=== PATIENT | female | born 1990 ===

== ENCOUNTER 2025-01-25 08:46 | Inpatient (IN) | payer OTHER ==
[~2025-01-25] VITALS: Ht 170.2 cm; Wt 95.1 kg
[2025-01-25] MEDS ORDERED: Aluminum Hydroxide 320MG/5ML 473 ML PO PRN ×2 (09:40→15:15)
[2025-01-25] MEDS ORDERED: DiphenhydrAMINE HCl 50 MG/ML 1ML Vial IM PRN ×2 (09:40→15:15)
[2025-01-25] MEDS ORDERED: Ondansetron 4 MG SoluTab MM PRN ×2 (09:45→15:15)
[2025-01-25] MEDS ORDERED: LORazepam 2 MG/ML 1ML Injection IM PRN ×2 (09:45→15:15)
[2025-01-25] MEDS ORDERED: Polyethylene Glycol 3350 17 gm PO PRN ×2 (09:45→15:15)
[2025-01-25] MEDS ORDERED: Haloperidol Lactate Inj. 5 MG/ML Injection IM PRN ×2 (09:50→15:15)
[2025-01-25] MEDS ORDERED: FLU VACC TS2025-26(6MOS UP)/PF 45 MCG/0.5 ML SYRINGE IM ONE (09:50)
[2025-01-25] MEDS ORDERED: FLU VACC TS2025-26(6MOS UP)/PF 45 MCG/0.5 ML SYRINGE IM SCH (09:50)
[2025-01-25 15:17] VITALS: BP 123/92
[2025-01-25] MEDS ORDERED: DULO60 PO (16:00)
[2025-01-25 16:01] VITALS: BP 123/92
[2025-01-25] MEDS ORDERED: BUPR100 PO (17:29)
[2025-01-25] MEDS ORDERED: VITAMIN D31250 MC2 PO (17:30)
[2025-01-25] MEDS ORDERED: ALBU90OI INH (17:36)
[2025-01-25] MEDS ORDERED: LEVE500 PO (17:38)
[2025-01-25] MEDS ORDERED: PRAZ2 PO (17:39)
[2025-01-25] MEDS ORDERED: GABA400 PO (17:39)
[2025-01-25] MEDS ORDERED: MELO7.5 PO (17:39)
[2025-01-25] MEDS ORDERED: DOTTI1 EA19 TOP (17:40)
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
[2025-01-25] MEDS ORDERED: Albuterol HFA200 ACT/6.7 GM INH INH PRN (20:35)
[2025-01-25 20:52] VITALS: BP 112/76
[2025-01-26] MEDS ORDERED: PANT40 PO (02:56)
[2025-01-26] MEDS ORDERED: ESTRADIOL1 MG PO (02:59)
[2025-01-26] MEDS ORDERED: HYDPAM50 PO (03:03)
[2025-01-26] MEDS ORDERED: Robaxin750 MG PO (03:08)
--- NOTE | 2025-01-26 04:05 | NUR ---
patient is alert and oriented times 4. She has a very flat affect, but is appropriate when asked questions and during assessment. Patient denied current suicidal ideation, but says it is intermittant and fleeting at the time of assessment. Denies HI and AVTH. Medication reconciliation had to be redone as discharge medication list from [facility] was found in patients belongings box. Pharmacy aware. Will notify MD in AM. Patient was pleasant and cooperative with both staff and her peers. Visited during snack time, then off to bed to read. Slept all night. Will continue close monitoring every 15 minutes for safety and comfort.
[2025-01-26 07:35] LABS: BASOPHILS ABSOLUTE AUTO 0.05 K/mm3 (0.00-0.23); BASOPHILS PERCENT AUTO 1 % (0-2); EOSINOPHILS ABSOLUTE AUTO 0.16 K/mm3 (0.00-0.68); EOSINOPHILS PERCENT AUTO 3 % (0-6); Hematocrit 39.3 % (33.0-51.0); Hemoglobin 13.5 g/dL (11.5-16.0); IMMATURE GRAN ABSOLUTE AUTO 0.01 K/mm3 (0.00-0.10); IMMATURE GRAN PERCENT AUTO 0 % (0-1); LYMPHOCYTES ABSOLUTE AUTO 1.91 K/mm3 (0.84-5.20); LYMPHOCYTES PERCENT AUTO 30 % (21-46); MONOCYTES ABSOLUTE AUTO 0.50 K/mm3 (0.16-1.47); MONOCYTES PERCENT AUTO 8 % (4-13); Mean Corpuscular HGB Conc 34.4 g/dL (31.5-36.5); Mean Corpuscular Volume 92 fL (80-100); NEUTROPHILS ABSOLUTE AUTO 3.82 K/mm3 (1.96-9.15); NEUTROPHILS PERCENT AUTO 59 % (41-73); NRBC ABSOLUTE 0.00 K/mm3 (0.00-0.02); NRBC Auto 0.0 /100 WBC (0.0-0.2); Platelet Count 251 K/mm3 (150-400); RDW Coefficient Variation 12.5 % (11.7-14.2); RDW Standard Deviation 41.8 fL (35.1-46.3)
[2025-01-26 08:06] LABS: Anion Gap 5 mmol/L (3-11); Blood Urea Nitrogen 10 mg/dL (8-24); CHOL/HDL RATIO 2.9; CO2, Blood 25 mmol/L (21-32); Calcium, Blood 8.8 mg/dL (8.5-10.1); Chloride, Blood 107 mmol/L (98-108); Cholesterol 177 mg/dL (50-200); Creatinine, Blood 0.59 mg/dL (0.40-1.00); Glucose, Blood 98 mg/dL (70-99); HDL Cholesterol 62 mg/dL (>39); LDL/HDL RATIO 1.3; Low Density Lipoprotein Chol 83 mg/dL (0-110); Potassium, Blood 4.3 mmol/L (3.5-5.5); Sodium, Blood 133 mmol/L (136-145); Triglycerides 162 mg/dL (30-140); Very Low Density Lipoprot Chol 32 mg/dL (6-28)
[2025-01-26 08:09] LABS: Acetaminophen, Random <2.0 ug/mL (10.0-30.0)
[2025-01-26 08:53] VITALS: BP 122/87
[2025-01-26] MEDS ORDERED: Multivitamins 1 Tab PO SCH ×2 (09:00)
[2025-01-26] MEDS ORDERED: DULoxetine HCL 60 MG Capsule DR PO SCH (09:00)
--- NOTE | 2025-01-26 17:19 | NUR ---
SHIFT NOTE PT DENIES SI/HI AND ALL HALLUCINATIONS THIS SHIFT. SHE WAS COMPLIANT WITH ALL MEDICATIONS. HER MED LIST WAS OBTAINED FROM [facility] AND UPDATED IN HER MED REC, OF WHICH PT SAYS IS THE THE MOST ACCURATE MED LIST FROM HER RECENT STAYS. SHE DID NOT RECIEVE ANY PRN MEDICATIONS. PT WAS CALM MOST OF THE SHIFT UNTL SHE USED THE PHONE AND GOT NONCOMPLIANT WITH ROSETTA JOHNSON WHEN TOLD HER TURN WAS OVER, SHE RAISED HER VOICE AT HER AND THE CHARGE NURSE HAD TO OBTAIN THE PHONE FROM THE PT. NO OTHER BEHAVIORS TO NOTE THIS SHIFT.
[2025-01-26 19:52] VITALS: BP 129/81
[2025-01-26] MEDS ORDERED: Cholecalciferol 1000 Unit Tablet (=25MCG) PO SCH (21:00)
--- NOTE | 2025-01-27 04:12 | NUR ---
SHIFT SUMMARY Patient is alert and oriented times four. She denied SI,HI and AVTH during evening assessment. She was very tearful at start of the shift worrying about her grandchildren being away from her as she is their primary caregiver. She stated she has never been from them before. Patient slept well starting right after snack time. No PRN medications were needed. Will continue close monitoring every 15 minutes for safety and comfort.
[2025-01-27 08:37] VITALS: BP 125/90
--- NOTE | 2025-01-27 16:42 | NUR ---
Patient is alert and orientated with clear speech and a logical thought process. She has been safe this shift and not having any suicidal thoughts. She denies ever having hallucinations. A UA with culture if indicated has been ordered d/t the patient complaining of pain bilateral abd and low back pain with a history of multiple UTI per patient report. This patient has had a total hyster, and states that the pain can not be menses related. Erik is currently relaxing in her room. Appears to get along well with her room mate.
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
[2025-01-27 19:20] VITALS: BP 136/85
--- NOTE | 2025-01-28 04:59 | NUR ---
SHIFT SUMMARY: PT A/O X4. PLEASANT AND COOPERTIVE. WAS IN THE DINNG AREA AT THE BEGINNING OF THE SHIFT FINISHING DINNER. INTERVIEWED PT. COLLECTED URINES SAMPLE APPROX. 1940. PT STATES SHE ISN'T ABLE TO EMPTY HER BLADDER ALL THE WAY WHEN SHE USES THE RESTROOM. NO COMPLAINT OF PAIN OR BURNING ON URINATION. PT IS CONCERNED ABOUT HER MEDICATION FOR THE NIGHT. SHE SAYS THAT SHE TAKES PRAZOSINE 6 MG AT NIGHT. WILL LEAVE MESSAGE WITH NEXT ON COMING NURSE SO SHE CAN TALK WITH THE DR. PT HASN'T SLEPT SOLIDLY SINCE GOING TO BED AT 2200. SHE WAKES UP FREQUENTLY. HAS NO COMPLAINT. WILL CONTINUE TO MONITOR Q 15 MINS PER SAFETY AND WELLNESS.
[2025-01-28 08:23] LABS: Source, Urine Clean Catch
[2025-01-28 08:26] LABS: Bilirubin, Urine Neg (Neg); Color, Urine Yellow (P-Yellow); Glucose Qualitative, Urine Neg (Neg); Ketones, Urine Neg (Neg); Leukocyte Esterase, Urine Neg (Neg); Protein, Urine Neg (Neg); Specific Gravity, Urine 1.025 (1.003-1.022); Urobilinogen, Urine NORM (Normal)
[2025-01-28 08:35] LABS: White Blood Cells, Urine 0-2 /hpf (0-5)
[2025-01-28 08:39] VITALS: BP 119/86
[2025-01-28 17:11] LABS: Source, Urine Clean Catch
[2025-01-28 17:14] LABS: Bilirubin, Urine Neg (Neg); Color, Urine Yellow (P-Yellow); Glucose Qualitative, Urine Neg (Neg); Ketones, Urine Neg (Neg); Leukocyte Esterase, Urine Neg (Neg); Protein, Urine Neg (Neg); Specific Gravity, Urine 1.025 (1.003-1.022); Urobilinogen, Urine NORM (Normal)
[2025-01-28 17:21] LABS: Red Blood Cells, Urine 0-2 /hpf (0-2); White Blood Cells, Urine 0-2 /hpf (0-5); Yeast/Fungi Urine Rare /hpf
--- NOTE | 2025-01-28 17:32 | NUR ---
PATIENT IS ALERT AND ORIENTATED. SPEECH IS CLEAR. THOUGHT CONTENT IS REALITY BASED AND LOGICAL. PATIENTS HAS PARTICIPATED IN UNIT ACTIVITIES SHE WISHES. SOMETIMES SHE STAYS IN HER ROOM, AND OTHER TIMES SHE IS WILLING TO PARTICIPATE. ALL MEDICATIONS WERE TAKEN ORDERED. CYMBALTA TIME WAS CHANGED TO NIGHT, BEGINNING TONIGHT. SHE DENIES HAVING SIDE EFFECTS FROM HER MEDICATIONS. SHE DENIES SI, SH, AND HALLUCINATIONS. THE PATIENT HAD A UA ORDERED LAST NIGHT BUT THE SPECIMEN WAS NOT PROCESSED UNTIL THIS AM, AND THE RESULT WAS SLIGHTLY ABNORMAL. PROVIDER ASKED FOR A REPEAT. THE REPEAT UA SHOWS MORE BACTERIA THAN THE FIRST, AND +2 BLOOD STILL PRESENT. PROVIDER ASKED FOR A CONSULT TO BE ORDERED. DAY SHIFT WEEKEND STAFF WILL PLACE THE CONSULT IN THE MORNING WHEN THE NEW HOSPITALIST IS ON DUTY. PATIENT IS CURRENTLY EATING DINNER.
--- NOTE | 2025-01-28 18:40 | NUR ---
Patient is on a 14 day diversion. We have no paperwork on file. I contacted [facility] PCI Montez Mike and left a VM today, requesting that he send the info to us by fax, or provide us contact info for her PCI if he was not the correct PCI assigned to the case. Both the phone number and fax for Fiona SINGH was left on his VM (His office number is [phone])
[2025-01-28 19:44] VITALS: BP 112/70
[2025-01-28] MEDS ORDERED: DULoxetine HCL 60 MG Capsule DR PO SCH (21:00)
--- NOTE | 2025-01-29 04:54 | NUR ---
SHIFT SUMMARY: PT A/O X4. DENIES SI, HI AND AVH. PT HAS BEEB IN HER ROOM BUT DID COME OUT FOR SNACK AND WRAP UP.PT WAS IN AN ANGRY MOOD. FEELS THAT "PEOPLE HERE JUST DON'T GET ME". [place] [address] AT HER REQUEST . SHE FEELS THAT IT WILL HELP HER SLEEP BETTER. THIS IS HOW SHE TAKES THEM AT HOME. PT HAS SLEPT BETTER TONIGHT WITH GIVEN MEDS AT 2200. HAS BEEN SLEEPING SINCE TAKEN MEDS. WILL CONTINUE TO MONITOR .
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
--- NOTE | 2025-01-29 17:53 | NUR ---
SHIFT SUMMARY PT HAS HAD A GOOD AFTERNOON. SHE HAS BEEN ACTIVE IN THE [employer]. SHE HAS HELPED MHA WITH SMALL PROGECTS. SHE HAS BEEN SMILING AND INTERACTING WELL WITH PEERS. INCREASED MINIPRESS TO 4MG. PT DID REPORTS AN UPSET STOMACH AFTER DINNER TUMS GIVEN. WILL CONTINUE POC
[2025-01-29 19:32] VITALS: BP 138/78
--- NOTE | 2025-01-30 04:21 | NUR ---
Patient is alert and oriented times four. She participated in the activities of the milieu and at snack time and went to bed shortly after 2100. Estradiol patch ordered and placed on left arm per patient request. (patch is on for 7 days). Patient has written a very articulate list of the reasons she should go back to [place] upon Discharge. She is actually plannng on getting on with her life and wants to go to [employer] classes and eventually nursing school. This nurse encouraged her to bring that list to next visit with the Doctor. Sleeping well overnight without interruption. Will continue close observation every 15 minutes for safety and comfort.
[2025-01-30 08:49] VITALS: BP 124/80
--- NOTE | 2025-01-30 10:13 | NUR ---
ASSUMED PT CARE @ 6280. PT IS AA&O TO PERSON, PLACE, SITUATION, AND TIME. SHE IS PLEASANT AND COOPERATIVE WITH CARE. SHE REPORTS SHE SLEPT PRETTY GOOD. SHE REPORTS MOOD IS GOOD BUT ANXIOUS ABOUT DC. SHE REPORTS THAT SHE WOULD LIKE TO DC BACK TO [facility] BEFORE SHE RELOCATES TO [facility]. SHE HAS A QUALITY COMPLIANCE CONSULTANT COURSE SHE WOULD LIKE TO COMPLETE AND OTHER OBLIGATIONS SHE WOULD LIKE TO COMPLETE. TIME SPENT EDUCATING PATIENT ABOUT VARSITY BASEBALL COACH HEALTH EFFECTS OF OD. WE SPOKE OF REACHING OUT FOR HELP BEFORE HARMING SELF. SHE WAS RECEPTIVE AND VERBALIZED UNDERSTANDING. PT DENIES SI, AVH. SPEECH AND EYE CONTACT ARE WNL. SHE DENIES ANY NEGATIVE MEDICATION SIDE EFFECTS. SHE HAS BEEN UP TO SHOWER, BREAKFAST AND HAS BEEN PLAYING HIMANSHU WITH PEERS. SHE IS ENCOURAGING AND KIND TO PEERS. TUMS X1 GIVEN FOR INDIGESTION WITH GOOD RESULTS. WILL CONTINUE POC
--- NOTE | 2025-01-30 17:37 | NUR ---
ASSUMED CARE OF PT FROM REBEKAH OSPINA AT 1500. PT WAS MEDICATED FOR C/O OF NAUSEA WITH PRN ZOFRAN PER EMAR. NO FURTHER CHANGES SINCE ASSUMPTION OF CARE.
--- NOTE | 2025-01-31 04:20 | NUR ---
Patient is very pleasant and alert and oriented times four. She participates in activities of the milieu and gets along with her peers. She denies SI,HI and AVTH at the time of her evening assessment. Had some stomach pain early in the evening which was resolved with amphogel liquid. She is looking forward to discharge, and has plans to attend [employer] classes after she has had a chance to get organized. Bed came around 2130 and she has been sleeping since. Will continue close monitoring every 15 minutes for safety and comfort.
[2025-01-31 08:44] VITALS: BP 119/64
--- NOTE | 2025-01-31 12:26 | NUR ---
IMPORTANT DISCHARGE INFORMATION PATIENT TO BE DISCHARGED TODAY AROUND 12:30PM. HER PARTNER/FRIEND JULY IS COMING TO PICK HER UP
--- NOTE | 2025-01-31 12:30 | NUR ---
IMPORTANT DISCHARGE INFORMATION PATIENT BEING PICKED UP BY FRIEND ALEXI. SHE CAN BE REACHED AT [phone] PATIENT VERBALIZES AN UNDERSTANDING. [facility] [place] ON [facility]/10/25 AT 9:40AM. YOU WILL MEET WITH YOUR MEDICATION MANAGEMENT TEAM AND THEY WILL SCHEDULE ALL OF THE REST OF YOUR APPOINTMENTS. PHARMACY: [facility] IN [place]: [phone]
--- NOTE | 2025-01-31 13:51 | NUR ---
DISCHARGE SUMMARY PT DC FROM [facility] AT 1344, FRIEND FROM [place] CAME TO CYTOTECHNOLOGIST/HISTOTECHNOLOGIST THE PT. HER PLAN IS TO RETURN TO [place] FOR A WEEK TO DEAL WITH GETTING ORGANIZED AND THEN WILL GO TO [place] FOR AN INJ.[facility] THAT INVOLVES SOBRIETY AND HEALTHY LIVING. SHE HAS SET THIS UP FROM THE OUTSIDE ON HER OWN. ALL BELONGINGS RETURNED, SAFETY PLAN COMPLETED, DISCHARGE SUMMARY COMPLETED WITH PT, SCRIPTS FAXED TO [facility] IN [place]
== END 2025-01-31 13:44 | disposition home or self-care (01) | DRG 883 ==
LOC: BHU 08:46
PROVIDERS: ADMIT Psychiatry & Neurology Psychiatry
DX: F60.3 Borderline personality disorder (principal); R45.851 Suicidal ideations; F32.A Depression, unspecified; Z28.21 Immunization not carried out because of patient refusal; Z91.030 Bee allergy status; Z79.52 Long term (current) use of systemic steroids; Z79.899 Other long term (current) drug therapy; Z79.1 Long term (current) use of non-steroidal anti-inflammatories (NSAID); Z79.51 Long term (current) use of inhaled steroids; Z91.51 Personal history of suicidal behavior
CPT/HCPCS: 36415; 80048; 80061; 81001; 83036; 85025; A9270; G0480